=== PATIENT | male | born 1975 | race American Indian/Alaskan Native ===

== ENCOUNTER 2018-11-20 11:19 | Emergency (ER) | payer SELFPAY ==
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
[2018-11-20 12:34] VITALS: BP 141/58
== END 2018-11-20 12:32 | disposition home or self-care (01) ==
LOC: ED 11:19
DX: K02.9 Dental caries, unspecified (principal); K05.10 Chronic gingivitis, plaque induced; G43.909 Migraine, unspecified, not intractable, without status migrainosus
CPT/HCPCS: 99282